=== PATIENT | female | born 1985 | race Caucasian/White ===

== ENCOUNTER 2022-05-16 10:59 | Observation (INO) ==
--- NOTE | 2022-05-16 14:36 | EKG ---
Test Reason : NEW ONSET CHF Blood Pressure : */* mmHG Vent. Rate : 85 BPM Atrial Rate : 85 BPM P-R Int : 144 ms QRS Dur : 106 ms QT Int : 388 ms P-R-T Axes : 22 -39 129 degrees QTc Int : 461 ms Normal sinus rhythm Left axis deviation Left ventricular hypertrophy ( R in aVL , [place] product , Romhilt-Andres ) Abnormal ECG When compared with ECG of 09-MAY-2022 21:04, Vent. rate has decreased BY [address] no longer depressed in Anterior leads Confirmed by Roni Luque (4) on 05/18/2022 3:14:09 PM Referred By: Confirmed By: Roni Luque
[2022-05-16] MEDS: XANAX PO SCH ×2 (14:47→21:05)
[2022-05-16] MEDS: COREG TAB 25 MG PO SCH ×2 (14:47→21:05)
[2022-05-16 15:21] LABS: BASOPHILS % (AUTO) 0.7 % (0.2-1.0); EOSINOPHILS # (AUTO) 0.1 x10^3/uL (0.0-0.2); EOSINOPHILS % (AUTO) 1.4 % (0.9-2.9); HEMATOCRIT 32.8 % (36.0-47.0); HEMOGLOBIN 11.2 g/dL (12.0-16.0); LYMPHOCYTES # (AUTO) 1.4 X10^3/uL (1.3-2.9); LYMPHOCYTES % (AUTO) 19.5 % (21.0-51.0); MEAN CORPUSCULAR HGB CONC 34.1 g/dL (33.0-35.0); MEAN CORPUSCULAR VOLUME 90.7 fL (80.0-100.0); MONOCYTES # (AUTO) 0.4 x10^3/uL (0.3-0.8); MONOCYTES % (AUTO) 5.6 % (0.0-13.0); NEUTROPHILS # (AUTO) 5.3 x10^3/uL (2.2-4.8); NEUTROPHILS % (AUTO) 72.8 % (42.0-75.0); RED BLOOD COUNT 3.61 X10^6/uL (3.5-5.4); RED CELL DISTRIBUTION WIDTH 14.6 % (11.6-16.5); WHITE BLOOD COUNT 7.2 X10^3/uL (3.6-10.0)
[2022-05-16 15:29] VITALS: BMI 39.8
[2022-05-16] MEDS: LASIX IVP SCH ×2 (15:44→21:05)
[2022-05-16 15:50] LABS: ALANINE AMINOTRANSFERASE 70 Units/L (12-78); ALBUMIN 3.6 g/dL (3.4-5.0); ALKALINE PHOSPHATASE 48 Units/L (46-116); ASPARTATE AMINO TRANSFERASE 25 Units/L (15-37); BLOOD UREA NITROGEN 12 mg/dL (7-18); CALCIUM 8.4 mg/dL (8.5-10.1); CARBON DIOXIDE 23.9 mmol/L (21-32); CHLORIDE 107 mmol/L (98-107); CREATINE KINASE 39 Units/L (26-192); CREATININE 0.77 mg/dL (0.55-1.02); SODIUM 139 mmol/L (136-145); TOTAL PROTEIN 6.9 g/dL (6.4-8.2); eGFR NON BLACK RACES > 60 (>60)
--- NOTE | 2022-05-16 16:55 | CT ---
HISTORY:Shortness of breath, CHFStudy: CT chest without contrastComparison:Same day radiographTechnique: Multiple axial images of the chest were obtained from the thoracic inlet to the upper abdomen without IV contrast. Dose reduction techniques including Automated Exposure Control (AEC) and adjustment of mA and kV were utilized.Findings:Please note evaluation is limited without IV contrast. Borderline mild cardiomegaly with left ventricular enlargement. No aortic aneurysm. Airways are patent. There is mild emphysema and air trapping. Mild interstitial edema at the lung bases without infiltrate, effusion or pneumothorax. 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 Thyroid gland is unremarkable. Airways are patent.The soft tissues and osseous structures appear intact. The visualized portions of the upper abdomen are grossly unremarkable.IMPRESSION:Mild cardiomegaly and suggestion of mild interstitial edema at the lung bases. No lung infiltrate or pleural effusion.Mild emphysematous changes.Persistent left-sided SVC (anatomic variant).Electronically signed by: YUNIEL CACERES (May 16, 2022 16:54:57)
--- NOTE | 2022-05-16 17:46 | EKG ---
Test Reason : NEW ONSET CHF Blood Pressure : */* mmHG Vent. Rate : 80 BPM Atrial Rate : 80 BPM P-R Int : 124 ms QRS Dur : 108 ms QT Int : 398 ms P-R-T Axes : 9 -34 131 degrees QTc Int : 459 ms Normal sinus rhythm Left axis deviation Left ventricular hypertrophy with repolarization abnormality ( R in aVL , [place] product , Romhilt-E stes ) Abnormal ECG When compared with ECG of 16-MAY-2022 14:31, (Unconfirmed) No significant change was found Confirmed by Roni Luque (4) on 05/18/2022 3:13:45 PM Referred By: Confirmed By: Roni Luque
--- NOTE | 2022-05-16 17:49 | RAD ---
HISTORY:Shortness of breath, CHFStudy: Single view chestComparison:05/09/2022Findings:There is improved aeration of the lungs. No infiltrate, effusion, or pneumothorax identified .Cardiac and mediastinal contours are within normal limits .The soft tissues are intact .IMPRESSION:Improved aeration of the lungs with no acute findings.Electronically signed by: YUNIEL CACERES (May 16, 2022 17:48:11)
--- NOTE | 2022-05-16 21:35 | EKG ---
Test Reason : NEW ONSET CHF Blood Pressure : */* mmHG Vent. Rate : 80 BPM Atrial Rate : 80 BPM P-R Int : 126 ms QRS Dur : 110 ms QT Int : 390 ms P-R-T Axes : 8 -34 133 degrees QTc Int : 449 ms Normal sinus rhythm Left axis deviation Left ventricular hypertrophy with repolarization abnormality ( R in aVL , [place] product , Romhilt-E stes ) Abnormal ECG When compared with ECG of 16-MAY-2022 17:41, (Unconfirmed) No significant change was found Confirmed by Roni Luque (4) on 05/18/2022 3:13:33 PM Referred By: Confirmed By: Roni Luque
[2022-05-17 05:31] LABS: BASOPHILS # (AUTO) 0.1 X10^3/uL (0.0-0.1); BASOPHILS % (AUTO) 0.7 % (0.2-1.0); EOSINOPHILS # (AUTO) 0.2 x10^3/uL (0.0-0.2); EOSINOPHILS % (AUTO) 2.3 % (0.9-2.9); HEMATOCRIT 34.8 % (36.0-47.0); HEMOGLOBIN 11.8 g/dL (12.0-16.0); LYMPHOCYTES # (AUTO) 1.8 X10^3/uL (1.3-2.9); LYMPHOCYTES % (AUTO) 23.5 % (21.0-51.0); MEAN CORPUSCULAR HEMOGLOBIN 30.8 pg (27.0-34.0); MEAN CORPUSCULAR HGB CONC 33.9 g/dL (33.0-35.0); MEAN CORPUSCULAR VOLUME 90.9 fL (80.0-100.0); MONOCYTES # (AUTO) 0.6 x10^3/uL (0.3-0.8); MONOCYTES % (AUTO) 8.2 % (0.0-13.0); NEUTROPHILS # (AUTO) 4.9 x10^3/uL (2.2-4.8); NEUTROPHILS % (AUTO) 65.3 % (42.0-75.0); RED BLOOD COUNT 3.83 X10^6/uL (3.5-5.4); RED CELL DISTRIBUTION WIDTH 14.7 % (11.6-16.5); WHITE BLOOD COUNT 7.6 X10^3/uL (3.6-10.0)
[2022-05-17 05:39] LABS: ALANINE AMINOTRANSFERASE 72 Units/L (12-78); ALBUMIN 3.9 g/dL (3.4-5.0); ALKALINE PHOSPHATASE 50 Units/L (46-116); ASPARTATE AMINO TRANSFERASE 29 Units/L (15-37); BLOOD UREA NITROGEN 17 mg/dL (7-18); CALCIUM 8.7 mg/dL (8.5-10.1); CHLORIDE 104 mmol/L (98-107); SODIUM 140 mmol/L (136-145); TOTAL PROTEIN 7.3 g/dL (6.4-8.2); eGFR NON BLACK RACES > 60 (>60)
[2022-05-17] MEDS ORDERED: MICRO K EXTEN CAP 10 MEQ PO PRN (06:18)
[2022-05-17] MEDS ORDERED: POTASSIUM CHLORIDE LIQ 20 MEQ UDC PO PRN (06:18)
[2022-05-17] MEDS ORDERED: MAGNESIUM SULFATE 1 GRAM/100 mL PREMIX 1 G/100 ML BAG IV PRN (06:18)
[2022-05-17] MEDS ORDERED: K-DUR TAB 20 MEQ PO PRN (06:18)
[2022-05-17] MEDS ORDERED: KLOR-CON PO PRN (06:18)
[2022-05-17] MEDS: XANAX PO SCH (08:04)
[2022-05-17] MEDS: COREG TAB 25 MG PO SCH (08:04)
[2022-05-17] MEDS: LASIX IVP SCH (08:04)
[2022-05-17 10:06] VITALS: BP 174/97
== END 2022-05-17 12:06 | disposition home or self-care (01) ==
LOC: MED/SURG
PROVIDERS: ADMIT Internal Medicine; ATTEND Internal Medicine
DX: I50.9 Heart failure, unspecified; R06.02 Shortness of breath; R77.8 Other specified abnormalities of plasma proteins; I11.0 Hypertensive heart disease with heart failure; R94.31 Abnormal electrocardiogram [ECG] [EKG]; R60.0 Localized edema